=== PATIENT | female | born 1985 | race Caucasian/White ===

== ENCOUNTER 2019-10-09 19:31 | Emergency (ER) | payer OTHER, SELFPAY ==
[2019-10-09 19:36] VITALS: BP 129/55; PULSE 70; RESP 14; TEMP 36.7; O2SAT 100
--- NOTE | 2019-10-09 19:40 | ED.SKABFB ---
HPI - Skin/Abscess/Foreign Bdy General Chief complaint: Skin/Abscess/Foreign Body Stated complaint: rash Time Seen by Provider: 10/09/19 19:40 Source: patient and RN notes reviewed History of Present Illness HPI narrative: Patient is a 34-year-old female who presents the urgent care with complaints of a rash since Monday. Patient states she noticed it after being outside all weekend and she has been using Benadryl and hydrocortisone cream without much improvement. Patient states that she now has areas to the buttocks, abdomen, right torso and upper legs. Patient states that the areas are very itchy. Denies of any known fever, chills, nausea, vomiting. No other acute complaints. No acute distress noted. Patient read the plan of care. Related Data Allergies Allergy/AdvReac Type Severity Reaction Status Date / Time No Known Allergies Allergy Verified 10/09/19 19:42 Review of Systems Review of Systems: Narrative: CONSTITUTIONAL: Denies fever, chills, or sweats. EYES: Denies visual changes, redness, or discharge. ENT: Denies rhinorrhea, congestion, sore throat, or otalgia. CARDIOVASCULAR: Denies chest pain, palpitations, or edema. RESPIRATORY: Denies cough or dyspnea. GASTROINTESTINAL: Denies abdominal pain, nausea, vomiting, or diarrhea. GENITOURINARY: Denies dysuria or hematuria. SKIN: Reports of itchy red rash to the abdomen, buttocks, right torso and upper legs MUSCULOSKELETAL: Denies back pain, joint pain, or myalgia. NEUROLOGIC: Denies headache, numbness, or weakness. All other systems reviewed are negative, except as documented in HPI. PMFSH Comments At the time of my signature, I reviewed and agree with the nursing past medical, surgical, social, and family history. There is no relevant family history pertinent to the patient complaint. Exam Narrative: Exam Narrative: GENERAL: This is a well-nourished, well-developed patient, in no apparent distress. HEAD: normocephalic, atraumatic. EYES: PERRL. Sclera clear/white. Vision is grossly intact. EARS: External ears normal NOSE: External nose normal with no obvious nasal discharge, nares without redness, no rhinorrhea. THROAT: Mucous membranes moist NECK: Neck supple SKIN: Raised erythemic lesions noted to the upper inner thighs, near the peritoneal area, right lateral torso, right upper back and abdomen NEURO: awake, alert, and oriented to person, place and time. There were no obvious focal neurologic abnormalities. EXTREMITIES: No clubbing, cyanosis, or edema. Course Vital Signs Vital signs: Vital Signs Temperature 98.1 F 10/09/19 19:36 Pulse Rate 70 10/09/19 19:36 Respiratory Rate 14 10/09/19 19:36 Blood Pressure 129/55 L 10/09/19 19:36 Pulse Oximetry 100 10/09/19 19:36 Temperature 98.1 F 10/09/19 19:36 Pulse Rate 70 10/09/19 19:36 Respiratory Rate 14 10/09/19 19:36 Blood Pressure 129/55 L 10/09/19 19:36 Pulse Oximetry 100 10/09/19 19:36 Reviewed MDM - Skin/Abscess/Foreign Bdy MDM Narrative Medical decision making narrative: Areas are likely due to bug bites. Advised the patient to continue to use Benadryl as needed. Use prescription steroid cream to affected areas, avoiding the groin, armpits, face. Complete steroid regimen as prescribed. Make sure to wear nonocclusive clothing. If you develop any increase in symptoms associated with severe swelling, itchiness, fever?go to the emergency room. Follow-up with your PCP within 2 to 5 days if her worsening symptoms or failure to improve. Differential Diagnosis Differential diagnosis: Likely viral exanthem, urticaria, cellulitis, impetigo and contact dermatitis Critical Care Time Critical Care Time Critical Care Time: No Discharge Plan Discharge Clinical Impression: Insect bites Qualifiers: Encounter type: initial encounter Site of insect bite: unspecified site Qualified Code(s): W57.XXXA - Bitten or stung by nonvenomous insect and other nonvenomous arthropods, initial encou
== END 2019-10-09 19:52 | disposition home or self-care (01) ==
PROVIDERS: Emergency Provider Nurse Practitioner Family; PCP Internal Medicine
DX: S70.362A Insect bite (nonvenomous), left thigh, initial encounter (principal); S70.361A Insect bite (nonvenomous), right thigh, initial encounter; S20.461A Insect bite (nonvenomous) of right back wall of thorax, initial encounter; S30.861A Insect bite (nonvenomous) of abdominal wall, initial encounter; W57.XXXA Bitten or stung by nonvenomous insect and other nonvenomous arthropods, initial encounter
CPT/HCPCS: 99213; G0463

== ENCOUNTER 2020-09-17 16:41 | Emergency (ER) | payer OTHER, SELFPAY ==
[2020-09-17 16:48] VITALS: BP 156/77; PULSE 62; RESP 14; TEMP 37.2; O2SAT 100
--- NOTE | 2020-09-17 17:06 | ED.EAR ---
HPI - Ear Problem General Chief complaint: Ear Stated complaint: Ear complaint Time Seen by Provider: 09/17/20 16:43 Source: patient Mode of arrival: ambulatory History of Present Illness HPI Narrative: 35 year old female presents to [facility] with complaints of right ear pain X 2 days. Patient reports that she was treated with Augmentin 1 month ago by her PCP for a right OM. Patient reports that she has been working outside the past few days and has had increased seasonal allergies. Patient has been taking [id number] ibuprofen with minimal relief. Patient denies fever, bites, chills, nausea, vomiting or diarrhea MD Complaint: ear pain Location: right ear Duration: constant Exacerbating factors: nothing Discharge from ear: Reports no Related Data Home Medications Medication Instructions Recorded Confirmed norgestimate-ethinyl estradiol 1 tablet PO DAILY 09/17/20 09/17/20 [Estarylla] Allergies Allergy/AdvReac Type Severity Reaction Status Date / Time No Known Allergies Allergy Verified 09/17/20 17:02 Review of Systems Constitutional: Constitutional: Denies chills, Denies fatigue, Denies fever(s) and Denies weakness ENT: Denies dysphagia, Denies dizziness, Denies epistaxis, Denies nasal congestion and Denies sore throat Comments: right ear pain Cardiovascular: Cardiovascular: Denies chest pain, Denies rapid heart rate, Denies radiating jaw, neck or arm pain and Denies slow heart rate Respiratory: Respiratory: Denies chest congestion, Denies cough, Denies dyspnea and Denies wheezing Integumentary/Breasts: Skin/Breast: Denies rash [facility] Family History Family History (Updated 09/17/20 @ 17:09 by Bing Delarosa APRN) Father Lung cancer Social History Social History (Updated 09/17/20 @ 17:09 by Bing Delarosa APRN) Smoking status: Never smoker Comments At time of signature, I agree with nursing past medical, surgical, social and family history. There is no relevant family history pertinent to the presenting complaint. I was so used to Exam Const: General: healthy appearing and no acute distress Orientation/consciousness: patient oriented x3 HENMT: Head: normal to inspection Ears: external ears normal and TM abnormal wth effusion serous on the right General nose exam: Normal nares present Face and sinus: normal facial exam and sinuses nontender Mouth: Yes moist mucous membranes Throat: uvula midline Resp: Effort & Inspection: normal respiratory effort and not tachypneic Auscultation: clear to auscultation bilaterally Cardio: Rate: regular rate and not bradycardic Rhythm: regular rhythm Skin: General skin exam: normal color, no jaundice and no pallor Rashes: no rashes Wounds: no wounds Neuro: General: patient oriented x3, moves all extremities and CN's II-XI intact bilaterally Psych: Appearance: grossly normal Mental Status: mental status grossly normal Affect: normal affect Thought content: Yes Normal thought content present Course Vital Signs Vital signs: Vital Signs Temperature 37.2 C 09/17/20 16:48 Pulse Rate 62 09/17/20 16:48 Respiratory Rate 14 09/17/20 16:48 Blood Pressure 156/77 H 09/17/20 16:48 Pulse Oximetry 100 09/17/20 16:48 Temperature 37.2 C 09/17/20 16:48 Pulse Rate 62 09/17/20 16:48 Respiratory Rate 14 09/17/20 16:48 Blood Pressure 156/77 H 09/17/20 16:48 Pulse Oximetry 100 09/17/20 16:48 Medical Decision Making MDM Narrative Medical decision making narrative: Patient agrees to take prednisone as prescribed. Patient agrees to take Claritin and Flonase daily. Patient agrees to follow-up with primary care provider if symptoms not improved. Differential Diagnosis Differential Diagnosis: OM, OE, Cerumen impaction Vital Signs Vital Signs: Vital Signs Temperature 37.2 C 09/17/20 16:48 Pulse Rate 62 09/17/20 16:48 Respiratory Rate 14 09/17/20 16:48 Blood Pressure 156/77 H 09/17/20 16:48 Pulse Oximetry
== END 2020-09-17 17:19 | disposition home or self-care (01) ==
PROVIDERS: Emergency Provider Nurse Practitioner Family; PCP Internal Medicine
DX: H69.91 Unspecified Eustachian tube disorder, right ear (principal)
CPT/HCPCS: 99213; G0463

== ENCOUNTER 2021-01-23 14:44 | Emergency (ER) | payer OTHER, SELFPAY ==
[2021-01-23 15:05] VITALS: BP 146/69; PULSE 75; RESP 18; TEMP 36.7; O2SAT 100
--- NOTE | 2021-01-23 15:54 | ED.GENADULT ---
HPI - General Adult General Chief complaint: Skin/Abscess/Foreign Body Stated complaint: left side of face pain Time Seen by Provider: 01/23/21 15:37 Source: patient and RN notes reviewed Mode of arrival: ambulatory Limitations: no limitations History of Present Illness HPI narrative: Patient presents today complaining of left-sided temporal and facial pain x2 days. Reports it is mostly a dull ache to these areas, but last night she had a sharp pain that lasted an hour. This is the only episode of sharp pain that she has had since onset of symptoms. Pain radiates to the left upper jawline. Denies tooth pain, rhinorrhea, nausea or vomiting, numbness or tingling in the face. She has been taking ibuprofen with some mild relief. She currently rates pain 08/01. No history of migraines. MD complaint: Left-sided facial pain. Related Data Home Medications Medication Instructions Recorded Confirmed norgestimate-ethinyl estradiol 1 tablet PO DAILY 01/23/21 01/23/21 [Estarylla] Allergies Allergy/AdvReac Type Severity Reaction Status Date / Time No Known Allergies Allergy Verified 09/17/20 17:02 Review of Systems Review of Systems: CONSTITUTIONAL: Denies body aches, fever, chills, or sweats. EYES: Denies visual changes, redness, or discharge. ENT: Denies rhinorrhea, congestion, sore throat, or otalgia.+ Left-sided facial pain CARDIOVASCULAR: Denies chest pain, palpitations, or edema. RESPIRATORY: Denies cough or dyspnea. GASTROINTESTINAL: Denies abdominal pain, nausea, vomiting, or diarrhea. GENITOURINARY: Denies dysuria or hematuria. SKIN: Denies rash, itching, or wounds. MUSCULOSKELETAL: Denies back pain, joint pain, or myalgia. NEUROLOGIC: Denies headache, numbness, tingling, or weakness. PSYCH: Denies depression or anxiety. [facility] Family History Family History Father Lung cancer Social History Social History Smoking status: Never smoker Comments At time of signature, I have reviewed and agree with nursing past medical, surgical, social and family history unless otherwise noted. Please see nursing chart for further information. There is no relevant family history pertinent to the presenting complaint Exam Narrative: GENERAL: Well-appearing, well-nourished, and in no acute distress. HEAD: Normocephalic, atraumatic. EYES: EOMI. PERRL. No redness or drainage. Conjunctivae normal. ENT: Mucous membranes pink and moist. Nares clear. No rhinorrhea. TMs normal bilaterally. Throat normal. Uvula midline. Tenderness to the left temporal area that extends down the cheek onto the left upper jawline. No swelling, erythema, ecchymosis. NECK: Normal AROM. CHEST: No respiratory distress. EXTREMITIES: Normal range of motion. No edema. SKIN: Warm, dry, no rash. Capillary refill normal. Normal skin turgor. NEURO: No focal deficits. Alert and oriented x3. Gait steady. PSYCH: Normal affect. No signs of depression or anxiety. Course Vital Signs Vital signs: Vital Signs Temperature 98.1 F 01/23/21 15:05 Pulse Rate 75 01/23/21 15:05 Respiratory Rate 18 01/23/21 15:05 Blood Pressure 146/69 H 01/23/21 15:05 Pulse Oximetry 100 01/23/21 15:05 Temperature 98.1 F 01/23/21 15:05 Pulse Rate 75 01/23/21 15:05 Respiratory Rate 18 01/23/21 15:05 Blood Pressure 146/69 H 01/23/21 15:05 Pulse Oximetry 100 01/23/21 15:05 Reviewed. Pt has been instructed to follow up with her PCP regarding her elevated blood pressure today. Medical Decision Making Differential Diagnosis Differential Diagnosis: Temporal arteritis, trigeminal neuralgia, Green's palsy Vital Signs Vital Signs: Vital Signs Temperature 98.1 F 01/23/21 15:05 Pulse Rate 75 01/23/21 15:05 Respiratory Rate 18 01/23/21 15:05 Blood Pressure 146/69 H 01/23/21 15:05 Pulse Oximetry 100 01/23/21 15:05
== END 2021-01-23 16:00 | disposition home or self-care (01) ==
PROVIDERS: Emergency Provider Nurse Practitioner; PCP Internal Medicine
DX: R51.9 Headache, unspecified (principal); Z86.16 Personal history of COVID-19
CPT/HCPCS: 99213; G0463

== ENCOUNTER 2021-08-26 17:34 | Emergency (ER) | payer OTHER, SELFPAY ==
[2021-08-26 17:45] VITALS: BP 137/82; PULSE 72; RESP 16; TEMP 36.7; O2SAT 100
--- NOTE | 2021-08-26 18:34 | ED.URI ---
HPI - URI/Sore Throat General Chief Complaint: Upper Respiratory Infection Stated Complaint: Sore Throat Time Seen by Provider: 08/26/21 18:34 Source: patient and RN notes reviewed Mode of arrival: ambulatory Limitations: no limitations History of Present Illness HPI Narrative: 36-year-old female presented for complaint of sore throat for the last 6 days. She states it has progressively worsened. Pain is worse with swallowing. She endorses occasional cough productive of green sputum for the last 2 days. She denies headache, sinus congestion, ear pain, nausea, vomiting, fevers or chills. She denies sick contacts. She has not been boosted for COVID, she is not vaccinated for the flu. She has been taking DayQuil for symptoms. Related Data Home Medications Medication Instructions Recorded Confirmed norgestimate-ethinyl estradiol 1 tablet PO DAILY 01/23/21 08/26/21 [Estarylla] Allergies Allergy/AdvReac Type Severity Reaction Status Date / Time No Known Allergies Allergy Verified 08/26/21 17:59 Review of Systems Review of Systems: CONSTITUTIONAL: Denies malaise, chills, sweats, fever EYES: Denies visual changes, redness, or discharge ENT: Reports sore throat CARDIOVASCULAR: Denies chest pain, palpitations, edema RESPIRATORY: Reports cough Denies dyspnea GASTROINTESTINAL: Denies abdominal pain, nausea, vomiting, diarrhea SKIN: Denies rash or itching MUSCULOSKELETAL: Denies myalgia NEUROLOGIC: Denies headache [facility] Family History Family History Father Lung cancer Social History Social History Smoking status: Never smoker Exam Narrative: GENERAL: Well-appearing HEAD: Normocephalic EYES: conjunctivae clear ENT: Mucous membranes moist. TM pearly choi with dull light reflex bilaterally; no tragal tenderness. Oropharynx erythematous without lesions or exudate, no drooling, no hoarseness, no trismus, uvula midline. No tripod positioning, muffled voice, soft palate or pharyngeal wall bulging NECK: Supple. No lymphadenopathy CHEST: Clear to auscultation, breath sounds equal. No wheezing, rhonchi, rales, or stridor. No respiratory distress, speaks in full sentences. HEART: Regular rate and rhythm. No murmur heard. SKIN: Warm, dry, no rash. NEURO: Alert and oriented x3. PSYCH: Normal mood and affect Course Course Emergency Course: Patient is aware of diagnosis, understands and agrees to treatment plan. Anticipatory guidance given. Patient agrees to follow-up as directed and is aware of reasons to seek care at the emergency department. Portions of this record may have been created with voice recognition software Level of Care: Express Care Visit Vital Signs Vital signs: Vital Signs Temperature 98.1 F 08/26/21 17:45 Pulse Rate 72 08/26/21 17:45 Respiratory Rate 16 08/26/21 17:45 Blood Pressure 137/82 08/26/21 17:45 Pulse Oximetry 100 08/26/21 17:45 Temperature 98.1 F 08/26/21 17:45 Pulse Rate 72 08/26/21 17:45 Respiratory Rate 16 08/26/21 17:45 Blood Pressure 137/82 08/26/21 17:45 Pulse Oximetry 100 08/26/21 17:45 reviewed MDM - URI/Sore Throat MDM Narrative Medical decision making narrative: Strep negative. She was advised on supportive treatment and is appropriate for outpatient treatment and follow-up Differential Diagnosis Differential diagnosis: Likely upper respiratory infection, sinusitis, viral infection and pharyngitis Lab Data Attestation: I reviewed the patient's lab results. Labs: Strep Screen Presumptive Negative *(Reference Range: Negative)* Discharge Plan Discharge Clinical Impression: Pharyngitis Qualifiers: Pharyngitis/tonsillitis etiology: unspecified etiology Qualified Code(s): J02.9 - Acute pharyngitis, unspecified Patient Disposition: Home, Self-Care Condition:
== END 2021-08-26 18:40 | disposition home or self-care (01) ==
PROVIDERS: Emergency Provider Nurse Practitioner Family; PCP Internal Medicine
DX: J02.9 Acute pharyngitis, unspecified (principal)
CPT/HCPCS: 87081; 87880; 99213; G0463

== ENCOUNTER 2023-01-09 18:05 | Emergency (ER) | payer OTHER, SELFPAY ==
[2023-01-09 18:12] VITALS: BP 138/75; PULSE 76; RESP 20; TEMP 37.1; O2SAT 100
--- NOTE | 2023-01-09 19:04 | ED.URI ---
HPI - URI/Sore Throat General Chief Complaint: Upper Respiratory Infection Stated Complaint: Sore Throat Time Seen by Provider: 01/09/23 18:40 Source: patient, RN notes reviewed and old records reviewed Mode of arrival: ambulatory Limitations: no limitations History of Present Illness HPI Narrative: 37 year old female who presents to [facility] care with complaints of sore throat and headache for 1.5 days, son is also ill with similar symptoms. Patient reports that she has not had a fever but has felt chilled and had sweats. Patient reports no known ill exposure but works around public.Patient reports history of strep throat, took Ibuprofen at noon today. MD elicited complaint: cough and sore throat Pertinent past history: other (strep throat) Onset (ago): day(s) (1.5) Pain scale (0-10): 6 Able to tolerate fluids by mouth: Yes Treatments prior to arrival: ibuprofen Related Data Home Medications Medication Instructions Recorded Confirmed norgestimate 0.25 mg-ethinyl 1 tablet PO DAILY 01/23/21 08/26/21 estradiol 35 mcg tablet (Estarylla) Allergies Allergy/AdvReac Type Severity Reaction Status Date / Time No Known Allergies Allergy Verified 08/26/21 17:59 Review of Systems Review of Systems: CONSTITUTIONAL: Denies malaise,states chills, sweats, no known fever. EYES: Denies visual changes, redness, or discharge. ENT: Reports rhinorrhea, congestion, no sinus pain, no otalgia positive for sore throat. CARDIOVASCULAR: Denies chest pain, palpitations, or edema. RESPIRATORY: Reports no cough.? Denies dyspnea. GASTROINTESTINAL: Denies abdominal pain, nausea, vomiting, diarrhea SKIN: Denies rash or itching. MUSCULOSKELETAL: Denies myalgia. NEUROLOGIC:Reports headache. All systems reviewed & are unremarkable except as noted in HPI and below PMFSH Past Medical History Medical History (Updated 01/11/23 @ 09:30 by Elba Shin NP) Shingles Strep throat Family History Family History Father Lung cancer Social History Social History Smoking status: Never smoker Comments At time of signature, agree with nursing past medical, surgical, social and family history. There is no relevant family history pertinent to the presenting complaint Exam Narrative: GENERAL: Well-appearing, well-nourished, and in no acute distress. HEAD: Normocephalic EYES: PERRLA, conjunctivae clear ENT: Nares clear, turbinates edematous and erythematous, clear discharge. Mucous membranes moist. TM pearly choi with dull light reflex bilaterally; no tragal tenderness. Oropharynx erythematous without lesions. Tonsils red not enlarged and without exudate, no drooling, no hoarseness, no trismus, uvula midline.some post nasal drainage. NECK: Supple. lymphadenopathy CHEST: Clear to auscultation, breath sounds equal. No wheezing, rhonchi, rales, or stridor. No respiratory distress, speaks in full sentences.no cough noted,SAO2 100% on room air HEART: Regular rate and rhythm. No murmur heard. SKIN: Warm, dry, no rash. NEURO: Alert and oriented x3. PSYCH: Normal mood and affect Course Course Emergency Course: Patient is aware of diagnosis, understands and agrees to treatment plan.? Anticipatory guidance given.? Patient agrees to follow-up as directed and is aware of reasons to seek care at the emergency department. Portions of this record may have been created with voice recognition software Level of Care: Express Care Visit Vital Signs Vital signs: Vital Signs Temperature 37.1 C 01/09/23 18:12 Pulse Rate 76 01/09/23 18:12 Respiratory Rate 20 01/09/23 18:12 Blood Pressure 138/75 01/09/23 18:12 Pulse Oximetry 100 01/09/23 18:12 Oxygen Delivery Room Air 01/09/23 18:12 Temperature 37.1 C 01/09/23 18:12 Pulse Rate 76 01/09/23 18:12 Respiratory Rate 20 01/09/23
== END 2023-01-09 19:30 | disposition home or self-care (01) ==
PROVIDERS: Emergency Provider Registered Nurse; PCP Internal Medicine
DX: J06.9 Acute upper respiratory infection, unspecified (principal); J02.9 Acute pharyngitis, unspecified; Z20.822 Contact with and (suspected) exposure to COVID-19
CPT/HCPCS: 87081; 87426; 87880; 99213; C9803; G0463

== ENCOUNTER 2023-07-22 08:50 | Emergency (ER) | payer OTHER, SELFPAY ==
[2023-07-22 09:01] VITALS: BP 138/75; PULSE 79; RESP 20; TEMP 36.8; O2SAT 100
--- NOTE | 2023-07-22 09:29 | ED.ABDPAIN ---
HPI - Abdominal Pain General Chief Complaint: Urogenital-Female Stated Complaint: Urinary Problem History of Present Illness HPI narrative: Pt is a 37 y/o female, presents to ED via POV with 24 hour hx of urinary burning, urgency and increased frequency, without NVD, flank pain or vaginal discharge. She has hx of one previous UTI a couple of years ago, she denies known abx resistance or chance of . she is drinking fluids but denies taking any other medications for symptom relief. she has no other complaints. Related Data Allergies Allergy/AdvReac Type Severity Reaction Status Date / Time No Known Allergies Allergy Verified 07/22/23 09:29 Review of Systems Genitourinary: Comments: refer to [facility] Past Medical History Medical History Shingles Strep throat Family History Family History Father Lung cancer Social History Social History Smoking status: Never smoker Exam Const: General: healthy appearing, no acute distress and alert Nutritional Appearance: obese Orientation/consciousness: patient oriented x3 Limitations: no limitations HENMT: Head: normal to inspection Face and sinus: normal facial exam Eyes: Conjunctivae: conjunctivae normal EOM: EOMs intact bilaterally Neck: Neck: normal visual inspection, no lymphadenopathy and no meningeal signs Resp: Effort & Inspection: normal respiratory effort Auscultation: clear to auscultation bilaterally Cardio: Rate: regular rate Rhythm: regular rhythm GI: GI Palp: Yes Soft to palpation, No Tenderness to palpation present (GI), No Guarding due to palpation present (GI), No Rigid due to palpation, No Hernia present, No Palpable mass present and No Rebound tenderness present Auscultation: normal bowel sounds : Other: no CVA TTP bilaterally Skin: General skin exam: normal color Rashes: no rashes Wounds: no wounds Neuro: General: patient oriented x3, moves all extremities, no meningeal signs, no focal motor deficits and CN's II-XI intact bilaterally Cranial nerves: Yes Nystagmus not present Speech: normal speech Gait exam (Neuro): Normal gait present Extrem: General: normal to inspection and no clubbing, cyanosis or edema Psych: Mental Status: mental status grossly normal Affect: normal affect Attitude: cooperative Course Course Emergency Course: POC urinalysis shows leuk and positive nitrites. Will send for culture, treating with Bactrim ds. pt is agreeable with plan, will push fluids, ER If flank pain or fevers/vomiting arise. She is agreeable with plan. Level of Care: Express Care Visit ([id number]) Vital Signs Vital signs: Vital Signs Temperature 36.8 C 07/22/23 09:01 Pulse Rate 79 07/22/23 09:01 Respiratory Rate 20 07/22/23 09:01 Blood Pressure 138/75 07/22/23 09:01 Pulse Oximetry 100 07/22/23 09:01 Oxygen Delivery Room Air 07/22/23 09:01 Temperature 36.8 C 07/22/23 09:01 Pulse Rate 79 07/22/23 09:01 Respiratory Rate 20 07/22/23 09:01 Blood Pressure 138/75 07/22/23 09:01 Pulse Oximetry 100 07/22/23 09:01 Oxygen Delivery Room Air 07/22/23 09:01 MDM - Abdominal Pain MDM Narrative Medical decision making narrative: + urine dip, will send culture, treat with Bactrim ds, lots of fluids, ER If fevers or flank pain/vomiting arise. Differential Diagnosis Differential diagnosis: Likely other (acute cystitis, urethritis, renal colic, pyelonephritis. ) Lab Data Labs: Urine Glucose Negative Reference Range: Negative Urine Bilirubin Negative Reference Range: Negative Urine Ketone Negative Reference Range: Negative
== END 2023-07-22 09:40 | disposition home or self-care (01) ==
PROVIDERS: Emergency Provider Nurse Practitioner Family; PCP Internal Medicine
DX: N30.01 Acute cystitis with hematuria (principal); B96.20 Unspecified Escherichia coli [E. coli] as the cause of diseases classified elsewhere
CPT/HCPCS: 81003; 87077; 87086; 87088; 87186; 99213; G0463

== ENCOUNTER 2023-09-24 14:39 | Emergency (ER) | payer OTHER, SELFPAY ==
[2023-09-24 15:13] VITALS: BP 116/84; PULSE 60; RESP 16; TEMP 36.5; O2SAT 100
--- NOTE | 2023-09-24 15:44 | ED.GENADULT ---
HPI - General Adult General Chief complaint: Skin/Abscess/Foreign Body Stated complaint: TICK BITE Time Seen by Provider: 09/24/23 15:45 Source: patient Mode of arrival: ambulatory Limitations: no limitations History of Present Illness HPI narrative: 38-year-old female patient presents to [facility] with complaints of a tick bite to the right arm about 5 days ago. Patient denies any colds. Denies chest pain shortness of breath. Patient states that she pulled the tick out and that now it is just itchiness and painful at times. Patient states she has been using Neosporin and topical Benadryl cream to help with the itchiness. Related Data Home Medications Medication Instructions Recorded Confirmed norgestimate 0.25 mg-ethinyl 1 tablet PO DAILY 09/24/23 09/24/23 estradiol 35 mcg tablet (Estarylla) Allergies Allergy/AdvReac Type Severity Reaction Status Date / Time No Known Allergies Allergy Verified 09/24/23 15:12 Review of Systems Review of Systems: CONSTITUTIONAL: Denies fever, chills, or sweats. EYES: Denies visual changes, redness, or discharge. ENT: Denies rhinorrhea, congestion, sore throat, or otalgia. CARDIOVASCULAR: Denies chest pain, palpitations, or edema. RESPIRATORY: Denies cough or dyspnea. GASTROINTESTINAL: Denies abdominal pain, nausea, vomiting, or diarrhea. GENITOURINARY: Denies dysuria or hematuria. SKIN: Denies rash or itching. tick bite right arm x5 days MUSCULOSKELETAL: Denies back pain, joint pain, or myalgia. NEUROLOGIC: Denies headache, numbness, or weakness. PSYCHIATRIC: Denies anxiety or depression. [facility] Past Medical History Medical History Shingles Strep throat Family History Family History Father Lung cancer Social History Social History Smoking status: Never smoker Comments At the time of my signature I agree with nursing past medical history, surgical, social, and family history. There is no relevant family history pertinent to the presenting complaint. Exam Narrative: GENERAL: Well-appearing, well-nourished, and in no acute distress. HEAD: Normocephalic, atraumatic. EYES: PERRLA and EOMI. ENT: Nares clear, no rhinorrhea or epistaxis. Mucous membranes moist. NECK: Supple. No lymphadenopathy CHEST: Clear to auscultation. No respiratory distress. HEART: Regular rate and rhythm. No murmur heard. Normal peripheral pulses. ABDOMEN: Soft, nontender, nondistended, normal active bowel sounds. EXTREMITIES: Normal range of motion. No edema. SKIN: Warm, dry, no rash. patient has approximately 1 cm x 1 cm round red area to the right forearm. There is no active drainage or discharge present at this time. No warmth noted. NEURO: No focal deficits. Alert and oriented x3. Course Course Level of Care: Express Care Visit Vital Signs Vital signs: Vital Signs Temperature 36.5 C 09/24/23 15:13 Pulse Rate 60 09/24/23 15:13 Respiratory Rate 16 09/24/23 15:13 Blood Pressure 116/84 09/24/23 15:13 Pulse Oximetry 100 09/24/23 15:13 Oxygen Delivery Room Air 09/24/23 15:13 Temperature 36.5 C 09/24/23 15:13 Pulse Rate 60 09/24/23 15:13 Respiratory Rate 16 09/24/23 15:13 Blood Pressure 116/84 09/24/23 15:13 Pulse Oximetry 100 09/24/23 15:13 Oxygen Delivery Room Air 09/24/23 15:13 vital signs reviewed Medical Decision Making MDM Narrative Medical decision making narrative: Plan of care for patient is to discharge home with prophylaxis for Lyme disease with doxycycline. Patient is aware of plan of care denies any other questions or concerns at this time. Differential Diagnosis Differential Diagnosis: differential diagnosis: Abscess, cellulitis, hidradenitis, laceration, puncture wound. [place] spotted fever, Lyme disease Vital Signs Vital Signs:
== END 2023-09-24 16:02 | disposition home or self-care (01) ==
PROVIDERS: Emergency Provider Nurse Practitioner Family; PCP Internal Medicine
DX: S50.861A Insect bite (nonvenomous) of right forearm, initial encounter (principal); W57.XXXA Bitten or stung by nonvenomous insect and other nonvenomous arthropods, initial encounter
CPT/HCPCS: 99213; G0463